=== PATIENT | female | born 1930 | race Caucasian/White ===

== ENCOUNTER 2016-05-31 06:56 | Day surgery (SDC) | payer MEDICARE, OTHER ==
[~2016-05-31] VITALS: Ht 167.6 cm; Wt 61.9 kg
== END 2016-05-31 09:44 | disposition home or self-care (01) ==
LOC: SSS 06:56
DX: I48.0 Paroxysmal atrial fibrillation (principal); I10 Essential (primary) hypertension; Z53.9 Procedure and treatment not carried out, unspecified reason; E03.9 Hypothyroidism, unspecified; F32.9 Major depressive disorder, single episode, unspecified; H93.19 Tinnitus, unspecified ear; G56.00 Carpal tunnel syndrome, unspecified upper limb; Z90.710 Acquired absence of both cervix and uterus; Z79.899 Other long term (current) drug therapy